=== PATIENT | female | born 1990 | race Caucasian/White ===

== ENCOUNTER 2017-01-23 22:57 | Emergency (ER) | payer BC ==
[2017-01-23 23:22] VITALS: TEMP 98; O2SAT 98
--- NOTE | 2017-01-24 00:14 | ED.PDOC ---
History of Present Illness - General Chief Complaint: Problem Stated Complaint: blood in urine Time Seen by Provider: 01/23/17 23:08 Source: patient Exam Limitations: no limitations - History of Present Illness Initial Comments: Patient presents with one day of lower back pain. Pain is bilateral, non- radiating, constant, sharp, worse with movement, better with rest, previous episode that was diagnosed as nephrolithiasis and required surgery. No fever. + hematuria. No dysuria/frequency/nocturia. No other complaints. Timing/Duration: 24 hours Severity: moderate Improving Factors: rest Worsening Factors: movement Associated Symptoms: denies symptoms Allergies/Adverse Reactions: Allergies Aspirin Allergy (Verified 01/23/17 23:23) Codeine Allergy (Verified 01/23/17 23:23) Ibuprofen [From Motrin] Allergy (Verified 01/23/17 23:23) Naproxen Allergy (Verified 01/23/17 23:23) Penicillins Allergy (Verified 01/23/17 23:23) Home Medications: Ambulatory Orders Venlafaxine HCl [Effexor] DAILY 01/23/17 Tramadol HCl 50 mg PO Q4HR PRN #20 tab 01/24/17 Review of Systems - Review of Systems Constitutional: States: no symptoms reported EENTM: States: no symptoms reported Respiratory: States: no symptoms reported Cardiology: States: no symptoms reported Gastrointestinal/Abdominal: States: no symptoms reported Genitourinary: States: see HPI Musculoskeletal: States: see HPI Skin: States: no symptoms reported Neurological: States: no symptoms reported Endocrine: States: no symptoms reported Hematologic/Lymphatic: States: no symptoms reported Past Medical History (General) - Patient Medical History Hx Seizures: No Hx Stroke: No Hx Dementia: No Hx Asthma: No Hx of COPD: No Hx Cardiac Disorders: Yes - murmur Hx Congestive Heart Failure: No Hx Pacemaker: No Hx Hypertension: No Hx Thyroid Disease: No Hx Diabetes: No Hx Gastroesophageal Reflux: No Hx Renal Disease: No Hx of HIV: No Hx MRSA: No Surgical History: appendectomy, cholecystectomy, colectomy, Hysterectomy - Vaccination History Hx Influenza Vaccination: No Hx Pneumococcal Vaccination: No - Social History Hx Tobacco Use: Yes Hx Alcohol Use: No Hx Substance Use: No Hx Substance Use Treatment: No Hx Depression: No - Female History Patient is a Female of Child Bearing Age (10 -59 yrs old): Yes Family Medical History - Family History Mother Family History: No Known Physical Exam - Physical Exam General Appearance: Alert Respiratory: lungs clear Cardiovascular/Chest: regular rate, rhythm Gastrointestinal/Abdominal: normal bowel sounds, non tender, soft Back Exam: CVA tenderness (R), CVA tenderness (L) Extremity: no pedal edema Skin Exam: normal color Progress - Progress Progress: 01/24/17 00:14 UA positive for blood. Laboratory Tests 01/23/17 01/23/17 23:25 23:30 WBC 8.3 RBC 4.52 Hgb 12.4 Hct 36.4 MCV 80.5 L MCH 27.5 MCHC 34.1 RDW 12.9 Plt Count 256 MPV 6.6 L Absolute Neuts (auto) 5.10 Absolute Lymphs (auto) 2.40 Absolute Monos (auto) 0.60 Absolute Eos (auto) 0.20 Absolute Basos (auto) 0.00 Neutrophils % 61.4 Lymphocytes % 28.9 Monocytes % 7.4 Eosinophils % 1.8 Basophils % 0.5 Sodium 141 Potassium 3.3 L Chloride 105 Carbon Dioxide 25 Anion Gap 14.3 BUN 14 Creatinine 0.88 BUN/Creatinine Ratio 15.9 Random Glucose 110 H Serum Osmolality 282.4 Calcium 9.1 Total Bilirubin 0.3 AST 24 ALT 25 Alkaline Phosphatase 116 Serum Total Protein 7.3 Albumin 4.2 Globulin 3.1 Albumin/Globulin Ratio 1.4 Urine Color Red H Urine Appearance Cloudy Urine pH 6.0 Ur Specific [place] >= 1.030 Urine Protein 100 H Urine Glucose (UA) 100 H Urine Ketones Negative Urine Blood Large H Urine Nitrite Negative Urine Bilirubin Negative Urine Urobilinogen 0.2 Ur Leukocyte Esterase Negative Urine RBC Tntc H Urine WBC 0-1 Ur Epithelial Cells 0-1 Urine Bacteria Rare Urine Mucus Trace 01/24/17 00:39 CT abd/pelvis showed calculus at the left ureteropelvic junction. Patient refused pain medications because she wanted to go back to work. RX for tramadol given. Departure - Departure Clinical Impression: Ureteral stone with hydronephrosis Disposition: Discharge to Home or Self Care Condition: Good Departure Forms: ED Discharge - Pt. Copy, Patient Portal Self Enrollment Diet: resume usual diet Activity: increase activity as tolerated Prescriptions: Tramadol HCl 50 mg PO Q4HR PRN #20 tab PRN Reason: Pain Home Medications: Ambulatory Orders Venlafaxine HCl [Effexor] DAILY 01/23/17 Tramadol HCl 50 mg PO Q4HR PRN #20 tab 01/24/17
[2017-01-24 00:50] VITALS: BP 134/81
--- NOTE | 2017-01-26 00:57 | CT ---
EXAM DESCRIPTION: Abdoment/Pelvis w/o Contrast CLINICAL HISTORY: 26 years Female bilateral back pain, hx of nephrolithiasis COMPARISON: None. TECHNIQUE: Contiguous axial images obtained through the abdomen and pelvis without IV contrast. Reformatted images obtained. FINDINGS: The lung bases are clear. The liver is enlarged measuring 20 cm. Fatty replacement in the liver. The spleen and pancreas appear unremarkable. No adrenal masses. Mild prominence of the left renal collecting system. 5 mm x 3 mm calculus visualized at the left ureteropelvic junction. There are tiny bilateral nonobstructing renal calculi also visualized. Changes from previous cholecystectomy. No aneurysmal dilatation of the aorta. No bowel obstruction. There appear to be changes from previous appendectomy. Postsurgical changes around loops of bowel in the lower abdomen. No free pelvic fluid. Changes from previous hysterectomy. IMPRESSION: Mild left hydronephrosis with a calculus at the left ureteropelvic junction. Tiny nonobstructing renal calculi. Enlarged fatty liver. Electronically signed by: Yoel Renteria MD 01/24/2017 12:24 AM ACTIVITY COORDINATOR
== END 2017-01-24 00:51 | disposition home or self-care (01) ==
LOC: ER 22:57
DX: N13.2 Hydronephrosis with renal and ureteral calculous obstruction (principal); Z87.891 Personal history of nicotine dependence; R01.1 Cardiac murmur, unspecified; Z88.6 Allergy status to analgesic agent; Z88.0 Allergy status to penicillin

== ENCOUNTER → 2017-02-05 | Outpatient (CLI) | payer BC, SELFPAY ==
--- NOTE | 2017-02-05 09:36 | RAD ---
EXAM DESCRIPTION: Hand,Right 3 Views CLINICAL HISTORY: 26 yearsFemale, PAIN IN RIGHT HAND COMPARISON: None. IMPRESSION: No degenerative change, fracture or osseous lesion at this time. If continued pain of the wrist is present after 7-10 days, repeat imaging is suggested to view an occult scaphoid fracture. Electronically signed by: Charles Goldberg MD 02/05/2017 9:35 AM RULING MACHINE SET UP OPERATOR
== END | disposition home or self-care (01) ==
LOC: RAD 08:09
PROVIDERS: ATTEND Orthopaedic Surgery
DX: M79.641 Pain in right hand (principal)

== ENCOUNTER 2017-03-24 22:50 | Emergency (ER) | payer BC ==
[2017-03-24 23:28] VITALS: BP 136/83
[2017-03-24] MEDS ORDERED: SODIUM CHLORIDE 0.9% 1000ML 1,000 ML IVS ONE (23:29)
[2017-03-24] MEDS ORDERED: KETOROLAC TROMETHAMINE INJ 30 MG/ML VIAL IV ONE (23:54)
[2017-03-24] MEDS ORDERED: TAMSULOSIN 0.4 MG CAP PO ONE (23:54)
--- NOTE | 2017-03-24 23:55 | RAD ---
PROCEDURE: Ankle,Right 3 Views CLINICAL HISTORY: fell on her ankle INDICATION: Same as above COMPARISON: None . TECHNIQUE: 3.0 Views of the right ankle were done. FINDINGS: There is no evidence of acute fractures or dislocation involving the right ankle. The soft tissues are radiographically unremarkable. There is no evidence of periosteal reactions or suspicious bony lesions. The talar dome and the subtalar joints are unremarkable. The joint spaces are relatively well-maintained. There is no visualization of any radiopaque foreign bodies. IMPRESSION: Negative for acute bony trauma involving the right ankle Place of interpretation: Teleradiology. Electronically signed by: Isaias Calle MD 03/24/2017 11:54 PM CDT
--- NOTE | 2017-03-25 00:31 | CT ---
PROCEDURE: Abdomen/Pelvis w/wo Contrast Clinical History: sharp back pains and abd , dark red urine. Indication: Same as above. Comparison: January 24, 2017. Technique: CT of the abdomen and pelvis was done without and with intravenous contrast, followed by orthogonal reconstructions. Oral contrast was not given for the study. The patient was injected with contrast intravenously, without any documented immediate adverse reactions. This exam was performed according to our departmental dose-optimization program, which includes automated exposure control, adjustment of the mA and/or KV according to the patient's size and/or use of iterative reconstruction technique. Findings: Images through the lung bases do not show any focal infiltrates or pleural effusions. There is a small hiatal hernia The pancreas, spleen and the bilateral adrenal glands appear unremarkable. The gallbladder is surgically absent. Note is again made of hepatomegaly and fatty metamorphosis of the liver. The liver measures 21.3 cm in length in the midclavicular line. Note is again made of multiple subcentimeter nonobstructive bilateral renal calculi. There is presence of a 3 mm calculus in the left renal pelvis The bilateral kidneys enhance with contrast in a normal fashion, without any evidence of hydronephrosis on either side. The bilateral ureters and the bilateral periureteral soft tissues and fat planes are unremarkable. There is no evidence of hydroureter on either side. The urinary bladder is unremarkable . Surgical hakan are again seen in the mid abdomen related to prior surgery involving the small bowel loops The small bowel otherwise appears unremarkable, without any evidence of small bowel obstruction or bowel wall thickening. There is no CT evidence of acute appendicitis, pericecal inflammatory change or ileocecal mesenteric adenitis. The ileocecal junction appears unremarkable. There is no CT evidence of acute colonic diverticulitis or colitis or large bowel obstruction. The splenic and portal veins are of normal caliber, without any filling defects. There is no pathological lymphadenopathy in the retroperitoneum or in the pelvic region. There is no evidence of free fluid or free air in the abdomen or the pelvic region. There is no clinically significant abdominal aortic aneurysm. There is no clinically significant inguinal or ventral hernia. There are no significant acute abnormalities of the bony structures of the abdomen and pelvic region. The paravertebral soft tissues are unremarkable. The remainder of the pelvic structures are unremarkable. Impression: Note is again made of hepatomegaly and fatty metamorphosis of the liver. The liver measures 21.3 cm in length in the midclavicular line. Note is again made of multiple subcentimeter nonobstructive bilateral renal calculi. There is presence of a 3 mm calculus in the left renal pelvis Location of Interpretation: Teleradiology Electronically signed by: Isaias Calle MD 03/25/2017 12:31 AM CDT
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
[2017-03-25 02:50] VITALS: TEMP 97.8; O2SAT 99
== END 2017-03-25 02:00 | disposition home or self-care (01) ==
LOC: ER 22:50
DX: N20.0 Calculus of kidney (principal); M25.571 Pain in right ankle and joints of right foot; R00.2 Palpitations; Z87.891 Personal history of nicotine dependence; Z85.41 Personal history of malignant neoplasm of cervix uteri; Z79.899 Other long term (current) drug therapy; Z88.6 Allergy status to analgesic agent; Z88.0 Allergy status to penicillin

== ENCOUNTER 2017-04-04 13:20 | Emergency (ER) | payer BC ==
[2017-04-04] MEDS ORDERED: HYDROmorphone HCL INJ 2 MG/ML VIAL IV ONE (13:51)
[2017-04-04] MEDS ORDERED: ONDANSETRON INJ 4 MG/2 ML VIAL IV ONE (13:51)
--- NOTE | 2017-04-04 13:56 | ED.PDOC ---
History of Present Illness - General Chief Complaint: Problem Stated Complaint: L flank pain Time Seen by Provider: 04/04/17 13:23 Source: RN notes reviewed, Vital Signs reviewed, family Exam Limitations: other - Patient will not answer any questions, she is either crying or "passed out" which reports is a normal response for her to pain. - History of Present Illness Initial Comments: Patient with hx of kidney stones with L flank pain. Feels same as prior kidney stones per . Timing/Duration: this morning Quality: other - Unknown, patient won't answer questions Onset Location: left flank Radiation: none Activites at Onset: none Prior abdominal problems: similar symptoms Sexual intercourse history: single partner Improving Factors: nothing Worsening Factors: nothing Associated Symptoms: other - Unknown Allergies/Adverse Reactions: Allergies Aspirin Allergy (Verified 03/24/17 23:47) Codeine Allergy (Verified 03/24/17 23:47) Ibuprofen [From Motrin] Allergy (Verified 03/24/17 23:47) Naproxen Allergy (Verified 03/24/17 23:47) Ondansetron [From Zofran] Allergy (Verified 04/04/17 15:30) Penicillins Allergy (Verified 03/24/17 23:47) Home Medications: Ambulatory Orders Venlafaxine HCl [Effexor] 50 mg PO DAILY 01/23/17 Metoprolol Succinate [Metoprolol Succinate ER] 25 mg PO DAILY 03/24/17 busPIRone HCL [Buspar] 5 mg PO DAILY 03/24/17 tiZANidine [Zanaflex] 4 mg PO BEDTIME #14 tab 03/25/17 Hydrocodone-Acetaminophen [[place] 5-325 mg] 1 tab PO Q4HR PRN #15 tab 04/04/17 Promethazine Tab [Phenergan Tablet] 25 mg PO Q6 HOURS PRN #12 tab 04/04/17 Review of Systems - Review of Systems Unable to Obtain Due To: clinical condition - Patient will not respond with anything other than crying Past Medical History (General) - Patient Medical History Hx Seizures: No Hx Stroke: No Hx Dementia: No Hx Asthma: No Hx of COPD: No Hx Cardiac Disorders: Yes - murmur, palpitations Hx Congestive Heart Failure: No Hx Pacemaker: No Hx Hypertension: No Hx Thyroid Disease: No Hx Diabetes: No Hx Gastroesophageal Reflux: No Hx Renal Disease: No Hx Cancer: Yes - cervical Hx of HIV: No Hx MRSA: No - Vaccination History Hx Influenza Vaccination: No Hx Pneumococcal Vaccination: No - Social History Hx Tobacco Use: Yes Hx Alcohol Use: No Hx Substance Use: No Hx Substance Use Treatment: No Hx Depression: No Family Medical History - Family History Mother Family History: No Known Physical Exam - Physical Exam General Appearance: Well Developed, Well Groomed, Well Hydrated, Well Nourished , Other - In obvious pain Neck: non-tender, full range of motion, supple Cardiovascular/Respiratory: regular rate, rhythm, no M/R/G, normal breath sounds , no respiratory distress Gastrointestinal/Abdominal: normal bowel sounds, non tender, soft Back Exam: CVA tenderness (L) Extremity: normal range of motion, non-tender Skin Exam: normal color, warm/dry Progress - Progress Progress: 04/04/17 14:53 Patient now reports she is allergic to Zofran but can take Phenergan. 04/04/17 15:45 Patient now reporting she has had pain for 2 weeks. She was seen here on with a 3mm L ureteral stone w/o hydroureteronephrosis @ that time. Explained to her this is a new stone and that the 3mm stone did not grow. She does not have a Urologist due to just moving here and has not made appt with the one in [place] that she was referred to yet. Since renal function is normal. Will d/c home with pain control and have her follow up with urologist. 04/04/17 15:53 Patient reports while she can't take Codeine she can take Hydrocodone. - Results/Orders Results/Orders: Laboratory Tests 04/04/17 04/04/17 13:51 13:51 WBC 8.0 RBC 4.92 Hgb 13.1 Hct 38.9 MCV 79.0 L MCH 26.6 L MCHC 33.6 RDW 12.8 Plt Count 235 MPV 6.5 L Absolute Neuts (auto) 5.90 Absolute Lymphs (auto) 1.20 Absolute Monos (auto) 0.80 Absolute Eos (auto) 0.10 Absolute Basos (auto) 0.00 Neutrophils % 73.5 Lymphocytes % 14.8 L Monocytes % 10.5 H Eosinophils % 0.9 L Basophils % 0.3 Sodium 138 Potassium 3.8 Chloride 107 Carbon Dioxide 26 Anion Gap 8.8 L BUN 16 Creatinine 1.17 BUN/Creatinine Ratio 13.7 Random Glucose 114 H Serum Osmolality 277.7 Calcium 9.6 Total Bilirubin 0.6 AST 25 ALT 27 Alkaline Phosphatase 127 H Serum Total Protein 7.8 Albumin 4.7 Globulin 3.1 Albumin/Globulin Ratio 1.5 - EKG/XRAY/CT CT Ordered: Yes - 6mm stone @ L UVJ w/ hydroureter and hydronephrosis Departure - Departure Clinical Impression: Ureteral stone with hydronephrosis Time of Disposition: 15:53 Disposition: Discharge to Home or Self Care Condition: Good Departure Forms: ED Discharge - Pt. Copy, Patient Portal Self Enrollment, Work Release Form Instructions: DI for Kidney Stones Diet: resume usual diet Activity: increase activity as tolerated Referrals: Fanny Sweeney FNP [Primary Care Provider] - 1-2 Weeks Prescriptions: Hydrocodone-Acetaminophen [[place] 5-325 mg] 1 tab PO Q4HR PRN #15 tab PRN Reason: Moderate To Severe Pain Promethazine Tab [Phenergan Tablet] 25 mg PO Q6 HOURS PRN #12 tab PRN Reason: Nausea/Vomiting Home Medications: Ambulatory Orders Venlafaxine HCl [Effexor] 50 mg PO DAILY 01/23/17 Metoprolol Succinate [Metoprolol Succinate ER] 25 mg PO DAILY 03/24/17 busPIRone HCL [Buspar] 5 mg PO DAILY 03/24/17 tiZANidine [Zanaflex] 4 mg PO BEDTIME #14 tab 03/25/17 Hydrocodone-Acetaminophen [[place] 5-325 mg] 1 tab PO Q4HR PRN #15 tab 04/04/17 Promethazine Tab [Phenergan Tablet] 25 mg PO Q6 HOURS PRN #12 tab 04/04/17
--- NOTE | 2017-04-04 14:33 | CT ---
PROCEDURE: Abdoment/Pelvis w/o Contrast HISTORY: L flank pain/R/O kidney stone Indication: Same as above Comparison: 03/24/2017 Technique: CT of the abdomen and pelvis was done without intravenous contrast. Images were obtained from the lung base to the level of the pubic symphysis in axial plane, followed by orthogonal sagittal and coronal reconstruction. Oral contrast was not given for the study. This exam was performed according to our departmental dose-optimization program, which includes automated exposure control, adjustment of the mA and/or KV according to the patient's size and/or use of iterative reconstruction technique. FINDINGS: Images through the lung bases do not show any focal infiltrates or pleural effusions. The pancreas, spleen and the bilateral adrenal glands appear unremarkable, given the limitation of lack of intravenous contrast. The gallbladder is surgically absent. Note is again made of fatty metamorphosis of the liver Note is made of multiple subcentimeter nonobstructive bilateral renal calculi. There is left-sided hydroureteronephrosis to the level of the 6 mm proximal left ureter at the ureteropelvic junction at L2 level There is surgery in the distal small bowel. The remainder of the small bowel appears unremarkable, without any evidence of small bowel obstruction or bowel wall thickening. The appendix is not visualized and is most likely surgically absent There is no CT evidence of acute colonic diverticulitis or colitis or large bowel obstruction. There is no pathological lymphadenopathy in the retroperitoneum or in the pelvic region. There is no evidence of free fluid or free air in the abdomen or the pelvic region. There is no clinically significant abdominal aortic aneurysm. There is no clinically significant inguinal or ventral hernia. The visualized lumbar spine is unremarkable. The paravertebral soft tissues are unremarkable. The remainder of the pelvic structures are unremarkable. IMPRESSION: Note is made of multiple subcentimeter nonobstructive bilateral renal calculi. There is left-sided hydroureteronephrosis to the level of the 6 mm proximal left ureter at the ureteropelvic junction at L2 level Electronically signed by: Isaias Calle MD 04/04/2017 2:33 PM CDT
[2017-04-04] MEDS ORDERED: PROMETHAZINE HCL INJ 12.5 MG in SODIUM CHLORIDE 0.9% 50ML 50 ML IVPB ONE (14:52)
[2017-04-04] MEDS ORDERED: PROMETHAZINE HCL INJ 25 MG/ML VIAL ONE (14:55)
[2017-04-04] MEDS ORDERED: SODIUM CHLORIDE 0.9% 50ML 50 ML ONE (14:56)
[2017-04-04 18:12] VITALS: BP 125/80; TEMP 97.2; O2SAT 98
== END 2017-04-04 16:25 | disposition home or self-care (01) ==
LOC: ER 13:20
DX: N13.2 Hydronephrosis with renal and ureteral calculous obstruction (principal); R01.1 Cardiac murmur, unspecified; Z87.891 Personal history of nicotine dependence; Z79.899 Other long term (current) drug therapy; Z87.442 Personal history of urinary calculi; Z85.41 Personal history of malignant neoplasm of cervix uteri; Z88.6 Allergy status to analgesic agent; Z88.0 Allergy status to penicillin

== ENCOUNTER 2017-06-29 07:12 | Emergency (ER) | payer BC ==
--- NOTE | 2017-06-29 07:26 | ED.PDOC ---
History of Present Illness - General Chief Complaint: Respiratory Problem Stated Complaint: cough, fever Time Seen by Provider: 06/29/17 07:20 Source: patient - History of Present Illness Timing/Duration: other - 3 days Severity: moderate Improving Factors: nothing Worsening Factors: nothing Associated Symptoms: other - TMAX, 103, NOW COUGHING UP SMALL AMOUNT BRB Allergies/Adverse Reactions: Allergies Aspirin Allergy (Verified 03/24/17 23:47) Codeine Allergy (Verified 03/24/17 23:47) Ibuprofen [From Motrin] Allergy (Verified 03/24/17 23:47) Naproxen Allergy (Verified 03/24/17 23:47) Ondansetron [From Zofran] Allergy (Verified 04/04/17 15:30) Penicillins Allergy (Verified 03/24/17 23:47) Home Medications: Ambulatory Orders Venlafaxine HCl [Effexor] 50 mg PO DAILY 01/23/17 Metoprolol Succinate [Metoprolol Succinate ER] 50 mg PO DAILY 03/24/17 tiZANidine [Zanaflex] 4 mg PO BEDTIME #14 tab 03/25/17 Hydrocodone-Acetaminophen [[place] 5-325 mg] 1 tab PO Q4HR PRN #15 tab 04/04/17 Promethazine Tab [Phenergan Tablet] 25 mg PO Q6 HOURS PRN #12 tab 04/04/17 Buspirone HCl 10 mg PO DAILY 06/29/17 Buspirone HCl 30 mg PO TID 06/29/17 Cefuroxime Axetil [Ceftin] 500 mg PO BID #20 tab 06/29/17 Review of Systems - Review of Systems Constitutional: States: chills, fever EENTM: Denies: tearing, ear pain, throat pain Respiratory: States: cough, other - HEMOPTYSIS. Denies: short of breath, wheezing Cardiology: Denies: chest pain, palpitations Gastrointestinal/Abdominal: States: other. Denies: abdominal pain, nausea, vomiting Genitourinary: States: no symptoms reported Musculoskeletal: States: other - GENERAL MALAISE. Denies: back pain, neck pain Skin: States: no symptoms reported Endocrine: States: no symptoms reported Hematologic/Lymphatic: States: no symptoms reported Past Medical History (General) - Patient Medical History Hx Seizures: No Hx Stroke: No Hx Dementia: No Hx Asthma: No Hx of COPD: No Hx Cardiac Disorders: Yes - murmur, palpitations Hx Congestive Heart Failure: No Hx Pacemaker: No Hx Hypertension: No Hx Thyroid Disease: No Hx Diabetes: No Hx Gastroesophageal Reflux: No Hx Renal Disease: No Hx Cancer: Yes - cervical Hx of HIV: No Hx Hepatitis C: No Hx MRSA: No Hx Other PMH: Yes - ANXIETY - Vaccination History Hx Tetanus, Diphtheria Vaccination: Yes Hx Influenza Vaccination: No Hx Pneumococcal Vaccination: No - Social History Hx Tobacco Use: Yes Hx Chewing Tobacco Use: No Hx Alcohol Use: No Hx Substance Use: No Hx Substance Use Treatment: No Hx Depression: No Hx Physical Abuse: No Hx Emotional Abuse: No Hx Suspected Abuse: No - Female History Patient : No Family Medical History - Family History Mother Family History: No Known Physical Exam - Physical Exam General Appearance: Alert, No apparent distress, Obese Eye Exam: bilateral normal Ears, Nose, Throat: hearing grossly normal, normal ENT inspection, normal pharynx Neck: non-tender, full range of motion, supple Respiratory: lungs clear, normal breath sounds, no respiratory distress Cardiovascular/Chest: regular rate, rhythm, no murmur Gastrointestinal/Abdominal: normal bowel sounds, non tender, soft, no organomegaly Back Exam: normal inspection, no CVA tenderness Extremity: normal range of motion, normal inspection, no pedal edema Neurologic: alert, normal mood/affect Skin Exam: normal color, warm/dry Lymphatic: no adenopathy Progress - Progress Progress: 06/29/17 08:39 O2 SAT 95% RA, NL. - EKG/XRAY/CT XRAY: chest - B[place]KIE Departure - Departure Clinical Impression: Pneumonitis Clinical Impression: (Ruled Out): Acute bronchitis Time of Disposition: 08:59 Disposition: Discharge to Home or Self Care Condition: Excellent Instructions: Pneumonia-Adult Referrals: Fanny Sweeney FNP [Primary Care Provider] - 1-2 Weeks Prescriptions: Cefuroxime Axetil [Ceftin] 500 mg PO BID #20 tab Home Medications: Ambulatory Orders Venlafaxine HCl [Effexor] 50 mg PO DAILY 01/23/17 Metoprolol Succinate [Metoprolol Succinate ER] 50 mg PO DAILY 03/24/17 tiZANidine [Zanaflex] 4 mg PO BEDTIME #14 tab 03/25/17 Hydrocodone-Acetaminophen [[place] 5-325 mg] 1 tab PO Q4HR PRN #15 tab 04/04/17 Promethazine Tab [Phenergan Tablet] 25 mg PO Q6 HOURS PRN #12 tab 04/04/17 Buspirone HCl 10 mg PO DAILY 06/29/17 Buspirone HCl 30 mg PO TID 06/29/17 Cefuroxime Axetil [Ceftin] 500 mg PO BID #20 tab 06/29/17
[2017-06-29] MEDS ORDERED: ACETAMINOPHEN 500 MG TAB PO ONE (07:32)
[2017-06-29] MEDS ORDERED: IBUPROFEN 200 MG TAB PO ONE (07:52)
--- NOTE | 2017-06-29 08:34 | RAD ---
EXAM DESCRIPTION: XR CHEST 2 VIEWS CLINICAL HISTORY: COUGH, HEMOPTYSIS, FEVER COMPARISON: None TECHNIQUE: PA/lateral FINDINGS: Heart size is normal. The lungs are clear. No acute bony abnormality. IMPRESSION: No acute cardiopulmonary process. Electronically signed by: Flash Mohan MD 06/29/2017 8:33 AM CDT
[2017-06-29] MEDS ORDERED: cefTRIAXone SODIUM 1 GM VIAL IM ONE (08:38)
[2017-06-29] MEDS ORDERED: LIDOCAINE 1% 10 ML VIAL INJ ONE (09:20)
[2017-06-29 09:58] VITALS: BP 97/64; TEMP 102.7; O2SAT 91
== END 2017-06-29 09:55 | disposition home or self-care (01) ==
LOC: ER 07:12
DX: J18.9 Pneumonia, unspecified organism (principal); Z87.891 Personal history of nicotine dependence; R01.1 Cardiac murmur, unspecified; R00.2 Palpitations; Z85.41 Personal history of malignant neoplasm of cervix uteri; Z79.899 Other long term (current) drug therapy; Z88.0 Allergy status to penicillin; Z88.6 Allergy status to analgesic agent
CPT/HCPCS: 71020; J0696